=== PATIENT | male | born 1980 | race African-American/Black ===

== ENCOUNTER 2019-05-15 03:06 | Inpatient (IN) ==
[2019-05-15] MEDS ORDERED: MOM Conc 10 ML UD.LIQ PO PRN (03:09)
[2019-05-15] MEDS ORDERED: Acetaminophen 325 MG TABLET PO PRN (03:09)
[2019-05-15] MEDS ORDERED: Nicotine 2 MG GUM BC PRN (03:09)
[2019-05-15] MEDS ORDERED: *HR* LORazepam 1 MG TABLET PO PRN (03:09)
[2019-05-15] MEDS ORDERED: Mag Hydrox/Al Hydrox/Simeth 30 ML UDC PO PRN (03:09)
[2019-05-15] MEDS ORDERED: Haloperidol Lactate 5 MG/ML VIAL IM PRN (03:09)
[2019-05-15] MEDS ORDERED: *HR* LORazepam 2 MG/ML VIAL IM PRN (03:09)
[2019-05-15] MEDS: hydrOXYzine pamoate 25 MG CAPSULE PO PRN (21:25)
[2019-05-15] MEDS: traZODone 50 MG TABLET PO PRN (21:25)
[2019-05-15] MEDS: lamoTRIgine 25 MG TABLET PO SCH (21:25)
[2019-05-16] MEDS: lamoTRIgine 25 MG TABLET PO SCH (21:19)
[2019-05-16] MEDS: traZODone 50 MG TABLET PO PRN (21:20)
[2019-05-17] MEDS: hydrOXYzine pamoate 25 MG CAPSULE PO PRN (21:02)
[2019-05-17] MEDS: lamoTRIgine 25 MG TABLET PO SCH (21:02)
[2019-05-17] MEDS: traZODone 50 MG TABLET PO PRN (21:03)
[2019-05-18] MEDS: hydrOXYzine pamoate 25 MG CAPSULE PO PRN (20:15)
[2019-05-18] MEDS: lamoTRIgine 25 MG TABLET PO SCH (20:15)
[2019-05-18] MEDS: traZODone 50 MG TABLET PO PRN (20:15)
[2019-05-19 09:31] VITALS: BP 115/78
== END 2019-05-19 11:33 | disposition home or self-care (01) | DRG 751 ==
LOC: 1ANU 03:06
PROVIDERS: ADMIT Psychiatry & Neurology Psychiatry; ATTEND Psychiatry & Neurology Psychiatry